=== PATIENT | male | born 1965 | race Caucasian/White ===

== ENCOUNTER → 2019-06-17 | Outpatient (CLI) | payer BC ==
[~2019-06-17] MED LIST: AMLODIPINE PO; BENICAR PO; BENICAR20 MG PO; CLONIDINE PO; METFORMIN HCL850 MG PO
--- NOTE | 2019-06-17 17:46 | Diagnostic Imaging Report ---
Testicular and scrotal ultrasound, 06/17/2019 Clinical History: D29.31 Discussion: Sonographic evaluation of the scrotal contents is performed. In addition, color Doppler and spectral waveform analysis evaluations of the scrotal contents are obtained. The testes have homogeneous echotexture, without focal mass. The right testis measures 3.7 x 2.1 x 3.0. The left testis measures 4.1 x 2.0 x 2.5. On color Doppler evaluation, there is symmetric blood flow to both testes. The epididymal heads have normal size and appearance. The right epididymal head measures 1.2 x 0.9 x 1.0. There is a right epididymal head cyst which measures 0.4 x 0.2 x 0.3 cm The left epididymal head measures 1.3 x 0.9 x 0.9. The palpable focus in the patient's right inferior scrotum corresponds to the pampiniform plexus. There is a small left varicocele. Impression: 1. Small right epididymal head cyst. 2. Palpable right inferior scrotal finding corresponds to the pampiniform plexus. 3. Small left varicocele. Signed by: Woodrow Payton MD on 06/17/2019 5:43 PM
== END ==
LOC: US 16:28
PROVIDERS: ATTEND Family Medicine
DX: D29.31 Benign neoplasm of right epididymis (principal)
CPT/HCPCS: 76870; 93976

== ENCOUNTER → 2020-08-06 | Day surgery (SDC) | payer BC ==
[2020-08-03 13:48] LABS: BASOPHILS % 0.4 % (0.0-1.0); EOSINOPHILS % 0.3 % (0.0-6.0); HEMATOCRIT 41.9 % (38.2-49.6); HEMOGLOBIN 14.2 g/dL (14.0-18.0); LYMPHOCYTES # (AUTO) 2.4 (1.0-3.2); MEAN CORPUSCULAR HEMOGLOBIN 30.5 pg (28-32); MEAN CORPUSCULAR HGB CONC 33.9 g/dL (31-35); MEAN CORPUSCULAR VOLUME 90.1 fL (81-99); MONOCYTES # (AUTO) 0.6 (0.2-0.8); MONOCYTES % 5.6 % (4.4-11.3); NEUTROPHILS # (AUTO) 6.9 (2.1-6.9); NEUTROPHILS % 69.3 % (38.7-80.0); PLATELET COUNT 310 x10e3/uL (140-360); RED BLOOD COUNT 4.65 x10e6/uL (4.3-5.7); RED CELL DISTRIBUTION WIDTH 12.5 % (11.7-14.4)
[2020-08-03 14:05] LABS: ANION GAP 14.6 mmol/L (8-16); BLOOD UREA NITROGEN 14 mg/dL (7-26); BUN/CREATININE RATIO 13 (6-25); CARBON DIOXIDE 27 mmol/L (22-29); CHLORIDE 103 mmol/L (98-107); EST GLOMERULAR FILTRATION RATE > 60 ML/MIN (60-); GLUCOSE 130 mg/dL (74-118); POTASSIUM 3.6 mmol/L (3.5-5.1); SODIUM 141 mmol/L (136-145)
[~2020-08-06] MED LIST changes: +BUPIVACAINE 0.25% 30ML SDV ONE; +BUPIVACAINE HCL 0.5% INJ 30 ML VIAL INJ ONE; +DEXAMETHASONE SOD PHOS INJ 4 MG/ML VIAL ONE; +EPHEDRINE SULFATE INJ 50 MG/ML VIAL ONE; +FARXIGA10 MG PO; +FENTANYL CITRATE/PF 100MCG/2 ML INJ ONE; +HYDROCODONE/APAP 7.5MG-325MG 1 EA TAB ONE; +KETOROLAC TROMETHAMINE 30 MG/ML VIAL ONE; +LIDOCAINE 1% W/EPINEPHRINE 20 ML VIAL ONE; +LIDOCAINE HCL 2% LOCAL INJ 5 ML SDV VIAL INJ ONE; +MIDAZOLAM HCL 2 MG/2 ML VIAL ONE; +OLMESARTAN-HCT1 EAC1 PO; +ONDANSETRON HCL INJ 2MG/ML 2ML 2 MG/ML VIAL ONE; +PROPOFOL IV EMULSION 10 MG/ML 20 ML VIAL ONE; +SEVOFLURANE INHAL SOLN 250 ML PEN BTL ONE
[2020-08-06 11:50] VITALS: BP 137/82
== END | disposition home or self-care (01) ==
LOC: OR 05:47
PROVIDERS: ATTEND Surgery
DX: K40.90 Unilateral inguinal hernia, without obstruction or gangrene, not specified as recurrent (principal); D17.6 Benign lipomatous neoplasm of spermatic cord; I10 Essential (primary) hypertension; E11.9 Type 2 diabetes mellitus without complications; Z01.810 Encounter for preprocedural cardiovascular examination; Z01.812 Encounter for preprocedural laboratory examination; Z20.822 Contact with and (suspected) exposure to COVID-19; Z79.84 Long term (current) use of oral hypoglycemic drugs
CPT/HCPCS: 36415 ×2; 49505; 80048; 82948; 85025; 93005; C1781; J1100; J1885; J2001; J2250; J2405; J2704; J3010; U0002